=== PATIENT | male | born 1945 | race Caucasian/White ===

== ENCOUNTER 2018-05-06 09:56 | Day surgery (SDC) | payer MEDICARE ==
[~2018-05-06 09:56] MED LIST: Acetaminophen TAB* 325 MG PO PRN
[2018-05-06] MEDS ORDERED: Midazolam* 1 MG/ML 5 ML VIAL (5 MG) ONE (11:03)
[2018-05-06 12:19] VITALS: BP 160/94
--- NOTE | 2018-05-06 13:01 | OP ---
DATE OF OPERATION: 05/06/18 - [facility] DATE OF : 47 SURGEON: Guillermo Ward MD ANESTHESIA: Monitored anesthesia care. PRE-OP DIAGNOSIS: Cataract, left eye. POST-OP DIAGNOSIS: Cataract, left eye. OPERATIVE PROCEDURE: Extracapsular cataract extraction of the left eye with intraocular lens implant. IMPLANTS: SN60WF 18.0 diopter lens to the left eye. COMPLICATIONS: None. DESCRIPTION OF PROCEDURE: The patient was given phenylephrine 2.5% and cyclopentolate 1% eye drops to the operative eye in the preoperative area. The patient was taken to the operating room where a time-out was taken to identify the correct patient, site, and side of surgery. The patient's left eye was prepped and draped in the usual sterile fashion with 5% Betadine. A second time- out was taken to verify the correct patient, side, and site of surgery, as well as the correct lens implant. A lid speculum was placed to the left eye. A 1mm paracentesis blade was used to make a clear corneal incision. Preservative-free 1% lidocaine was injected into the anterior chamber. DisCoVisc was then injected into the anterior chamber. A 2.75 mm keratome blade was used to make a triplanar incision. A cystotome initiated a capsulorrhexis, which was completed with Utrata forceps in a continuous and curvilinear manner. Hydrodissection of the lens was performed with BSS on a cannula. The lens could be spun in a capsular bag. The phacoemulsification handpiece was used with a divide-and- conquer technique to remove the nucleus. The I/A handpiece then removed the residual cortical lens material. DisCoVisc was injected to inflate the capsular bag. The planned SN60WF 18.0 diopter lens was injected into the capsular bag. The residual DisCoVisc was removed from the eye with the I/A handpiece. The corneal incisions were hydrated and no leaks occurred at physiologic pressure around 20 mmHg per palpation. The lid speculum was removed and drapes were removed. Maxitrol ointment was placed to the surface of the operative eye. An adhesive patch and shield was then placed on the operative eye. The patient was taken to the postoperative area in stable condition. [id number]/[facility] #: [id number] [facility]
[2018-05-06] MEDS ORDERED: Tropicamide 1% OPTH.SOL* BTL ONE (13:12)
[2018-05-06] MEDS ORDERED: acetaZOLAMIDE TAB* 250 MG ONE (13:12)
[2018-05-06] MEDS ORDERED: Ketorolac 0.5% OPHTH (NF) 0.5 % 5 ML BTL ONE (13:12)
[2018-05-06] MEDS ORDERED: Tetracaine 0.5% OPTH.SOL 4 ML* 1 DROP BTL ONE (13:12)
[2018-05-06] MEDS ORDERED: Cyclopentolate 1% OPTH.SOL* 2 ML BTL ONE (13:12)
[2018-05-06] MEDS ORDERED: Lidocaine 1%* 5 ML VIAL ONE (13:12)
[2018-05-06] MEDS ORDERED: Neomycin/Polymy/Dex OPHTH.OIN* 3.5 GM ONE (13:12)
[2018-05-06] MEDS ORDERED: Povidone Iodine 5% OPTH* 30 ML BTL ONE (13:12)
== END 2018-05-06 12:25 | disposition home or self-care (01) ==
LOC: OREAST 09:56
PROVIDERS: ATTEND Student in an Organized Health Care Education/Training Program
DX: H25.12 Age-related nuclear cataract, left eye (principal); Z87.891 Personal history of nicotine dependence; I10 Essential (primary) hypertension; J44.9 Chronic obstructive pulmonary disease, unspecified; F41.9 Anxiety disorder, unspecified
CPT/HCPCS: A9270-GY; J2250; V2632

== ENCOUNTER 2018-05-13 08:50 | Day surgery (SDC) | payer MEDICARE ==
[2018-05-13] MEDS ORDERED: Midazolam* 1 MG/ML 5 ML VIAL (5 MG) ONE (10:33)
[2018-05-13] MEDS ORDERED: fentaNYL* 50 MCG/ML 2 ML VIAL (100 MCG VIAL) ONE (10:33)
[2018-05-13] MEDS ORDERED: Metoprolol Tartrate IV* 1 MG/ML 5 ML VIAL ONE (11:26)
[2018-05-13 12:03] VITALS: BP 147/95
[2018-05-13] MEDS ORDERED: Tetracaine 0.5% OPTH.SOL 4 ML* 1 DROP BTL ONE (15:20)
[2018-05-13] MEDS ORDERED: Phenylephrine 2.5% OPTH.SOL* 2 ML BTL ONE (15:20)
[2018-05-13] MEDS ORDERED: Ketorolac 0.5% OPHTH (NF) 0.5 % 5 ML BTL ONE (15:20)
[2018-05-13] MEDS ORDERED: Lidocaine 1%* 5 ML VIAL ONE (15:20)
[2018-05-13] MEDS ORDERED: Cyclopentolate 1% OPTH.SOL* 2 ML BTL ONE (15:20)
[2018-05-13] MEDS ORDERED: Tropicamide 1% OPTH.SOL* BTL ONE (15:20)
[2018-05-13] MEDS ORDERED: Neomycin/Polymy/Dex OPHTH.OIN* 3.5 GM ONE (15:20)
[2018-05-13] MEDS ORDERED: Povidone Iodine 5% OPTH* 30 ML BTL ONE (15:20)
[2018-05-13] MEDS ORDERED: acetaZOLAMIDE TAB* 250 MG ONE (15:20)
--- NOTE | 2018-05-14 09:34 | OP ---
DATE OF OPERATION: 05/13/18 - [facility] DATE OF : 47 SURGEON: Guillermo Ward MD ANESTHESIA: Monitored anesthesia care. PRE-OP DIAGNOSIS: Cataract lens fragment in the eye following cataract surgery , left eye. POST-OP DIAGNOSIS: Cataract lens fragment in the eye following cataract surgery , left eye. OPERATIVE PROCEDURE: Anterior chamber washout of the left eye. IMPLANTS: None. COMPLICATIONS: None. DESCRIPTION OF PROCEDURE: The patient was given phenylephrine 2.5% and cyclopentolate 1% eye drops to the operative eye in the preoperative area. The patient was taken to the operating room where a time-out was taken to identify the correct patient, site, and side of surgery. The patient's left eye was prepped and draped in the usual sterile fashion with 5% Betadine. A second time -out was taken to verify the correct patient, side, and site of surgery. A lid speculum was placed to the left eye. The anterior chamber was examined under the surgical microscope. The lens fragment could not be seen in the inferior angle under the surgical microscope; however, its presence was known due to the previous slit lamp exam. The 1-mm paracentesis was reaccessed using a cyclodialysis spatula. The anterior chamber was filled with Provisc. The superotemporal main incision was accessed with a cyclodialysis spatula. The inferior angle was then flushed with BSS and the lens fragment emerged and was visible. Provisc was used to displace lens fragment out through the main incision, which was done so without complication. The Provisc was then evacuated from the eye with the irrigation and aspiration tip. A thorough irrigation was performed with the I/A of the anterior chamber. The corneal incisions were hydrated and no leaks occurred at physiologic pressure around 20 mmHg per palpation. The lid speculum was removed and drapes removed. Maxitrol ointment was placed to the surface of the operative eye. An adhesive patch and shield was then placed in the operative eye. The patient was taken to the postoperative area in stable condition. [id number]/[facility] #: [id number] [facility]ITAL[facility]phan
== END 2018-05-13 11:54 | disposition home or self-care (01) ==
LOC: OREAST 08:50
PROVIDERS: ATTEND Student in an Organized Health Care Education/Training Program
DX: H59.022 Cataract (lens) fragments in eye following cataract surgery, left eye (principal); Z87.891 Personal history of nicotine dependence; K21.0 Gastro-esophageal reflux disease with esophagitis; I71.9 Aortic aneurysm of unspecified site, without rupture; F41.9 Anxiety disorder, unspecified
CPT/HCPCS: A9270-GY; J2250; J3010; J3490

== ENCOUNTER 2022-02-12 19:25 | Inpatient (IN) ==
[2022-02-12] MEDS ORDERED: Albuterol/Ipratropium NEB.SOL (2.5/0.5 MG) 3 ML NEB.SOLN INH ONE (20:10)
[2022-02-12] MEDS ORDERED: methylPREDNISolone SOD SUCC 125 mg 2 ML VIAL IV ONE (20:10)
[2022-02-12 20:43] LABS: PCO2 Arterial 27 mmHg (35-45)
[2022-02-12 20:47] LABS: PO2 Arterial 55 mmHg (80-100)
[2022-02-12 21:10] LABS: ABS Eosinophils 0.4 10^3/ul (0-0.6); ABS Lymphocytes 1.7 10^3/ul (1.0-4.8); ABS Monocytes 0.7 10^3/ul (0-0.8); ABS Neutrophils 6.7 10^3/ul (1.5-7.7); Eosinophil % 3.8 %; Hematocrit 37 % (42-52); Hemoglobin 12.6 g/dL (14.0-18.0); Lymphocyte % 18.1 %; Mean Corpuscular HGB Conc 34 g/dL (31-36); Mean Corpuscular Hemoglobin 30 pg (27-31); Mean Corpuscular Volume 87 fL (80-94); Mean Platelet Volume 7.9 fL (7.4-10.4); Nucleated Red Blood Cells % 0.2; Platelet Count 159 10^3/uL (150-450); Red Blood Count 4.21 10^6 /uL (4.18-5.48); Red Cell Distribution Width 14 % (10-15); White Blood Count 9.5 10^3/uL (3.5-10.8)
[2022-02-12] MEDS ORDERED: Furosemide 40 mg/4 ml IV VIAL IV SLOW PU ONE (21:31)
[2022-02-12 21:55] LABS: Albumin 4.1 g/dL (3.2-5.2); Albumin/Globulin Ratio 1.5 (1-3); Calcium 8.8 mg/dL (8.6-10.3); Globulin 2.7 g/dL (2-4); Potassium 4.1 mmol/L (3.5-5.0); Total Bilirubin 0.8 mg/dL (0.2-1.0); Total Protein 6.8 g/dL (6.4-8.9); eGFR CKD-EPI 78.5 (>60)
[2022-02-12] MEDS ORDERED: Iodixanol (CONTRAST) 320 MG/ML 100 ML SDV IV ONE (21:59)
[2022-02-12 23:24] LABS: High Sensitivity Troponin 1 Hr 16 pg/mL (<20)
[2022-02-12] MEDS ORDERED: cefTRIAXone 1 gm/50 mL D5W 1 GM/50 ML BAG IV ONE (23:32)
[2022-02-12] MEDS ORDERED: Azithromycin 500 mg/250 ml NS 500 MG/250 ML BAG IVPB ONE (23:35)
[2022-02-13 01:05] LABS: PCO2 Arterial 29 mmHg (35-45); PO2 Arterial 108 mmHg (80-100)
[2022-02-13] MEDS ORDERED: Albuterol/Ipratropium NEB.SOL (2.5/0.5 MG) 3 ML NEB.SOLN INH PRN (01:58)
[2022-02-13] MEDS: Enoxaparin 40 MG/0.4 ML SYR SUBCUT SCH (03:40)
[2022-02-13 04:35] LABS: ABS Lymphocytes 0.9 10^3/ul (1.0-4.8); ABS Monocytes 0.2 10^3/ul (0-0.8); ABS Neutrophils 6.6 10^3/ul (1.5-7.7); Eosinophil % 0.3 %; Hematocrit 34 % (42-52); Hemoglobin 11.8 g/dL (14.0-18.0); Lymphocyte % 11.8 %; Mean Corpuscular HGB Conc 34 g/dL (31-36); Mean Corpuscular Hemoglobin 30 pg (27-31); Mean Corpuscular Volume 86 fL (80-94); Mean Platelet Volume 8.1 fL (7.4-10.4); Nucleated Red Blood Cells % 0.1; Platelet Count 159 10^3/uL (150-450); Red Blood Count 4.02 10^6 /uL (4.18-5.48); Red Cell Distribution Width 14 % (10-15); White Blood Count 7.7 10^3/uL (3.5-10.8)
[2022-02-13 05:08] LABS: Calcium 8.5 mg/dL (8.6-10.3); Potassium 4.1 mmol/L (3.5-5.0); eGFR CKD-EPI 76.6 (>60)
[2022-02-13] MEDS ORDERED: Dextrose 50% Syringe 50 ml 25 GM/50 ML SYRINGE IV PUSH PRN (08:29)
[2022-02-13] MEDS: methylPREDNISolone SOD SUCC 40 mg/ml 1 ml VIAL IV SCH ×3 (09:13→23:57)
[2022-02-13] MEDS: SPIRIVA Respimat (tiotropium) 2.5 mcg/inh Inhaler INH SCH (10:24)
[2022-02-13] MEDS: Mometasone/Formoter 200/5 MDI INH SCH ×2 (10:25→20:21)
[2022-02-13] MEDS ORDERED: Albuterol 2.5mg/3 ml (0.083%) NEB.SOLN INH PRN (14:24)
[2022-02-13] MEDS ORDERED: cefTRIAXone 1 gm/50 mL D5W 1 GM/50 ML BAG IV SCH (21:00)
[2022-02-13] MEDS ORDERED: Azithromycin 500 mg/250 ml NS 500 MG/250 ML BAG IVPB SCH (22:00)
[2022-02-14] MEDS: SPIRIVA Respimat (tiotropium) 2.5 mcg/inh Inhaler INH SCH (08:28)
[2022-02-14] MEDS: Mometasone/Formoter 200/5 MDI INH SCH ×2 (08:28→21:30)
[2022-02-14] MEDS: Enoxaparin 40 MG/0.4 ML SYR SUBCUT SCH (08:34)
[2022-02-14] MEDS: methylPREDNISolone SOD SUCC 40 mg/ml 1 ml VIAL IV SCH ×2 (08:36→17:06)
[2022-02-14 10:03] LABS: ABS Lymphocytes 0.9 10^3/ul (1.0-4.8); ABS Monocytes 0.5 10^3/ul (0-0.8); Eosinophil % 0.1 %; Hematocrit 35 % (42-52); Hemoglobin 11.8 g/dL (14.0-18.0); Lymphocyte % 6.3 %; Mean Corpuscular HGB Conc 34 g/dL (31-36); Mean Corpuscular Hemoglobin 29 pg (27-31); Mean Corpuscular Volume 87 fL (80-94); Mean Platelet Volume 7.9 fL (7.4-10.4); Nucleated Red Blood Cells % 0.1; Platelet Count 225 10^3/uL (150-450); Red Blood Count 3.99 10^6 /uL (4.18-5.48); Red Cell Distribution Width 14 % (10-15); White Blood Count 14.4 10^3/uL (3.5-10.8)
[2022-02-14 10:41] LABS: Calcium 8.6 mg/dL (8.6-10.3); Magnesium 2.1 mg/dL (1.9-2.7); Potassium 4.3 mmol/L (3.5-5.0); eGFR CKD-EPI 74.9 (>60)
[2022-02-14] MEDS ORDERED: Albuterol/Ipratropium NEB.SOL (2.5/0.5 MG) 3 ML NEB.SOLN INH SCH ×2 (13:05→14:00)
[2022-02-14 13:59] LABS: PCO2 Arterial 31 mmHg (35-45)
[2022-02-14 14:02] LABS: PO2 Arterial 55 mmHg (80-100)
[2022-02-14] MEDS: Albuterol/Ipratropium NEB.SOL (2.5/0.5 MG) 3 ML NEB.SOLN INH SCH ×3 (14:03→23:24)
[2022-02-14] MEDS ORDERED: Furosemide 40 mg/4 ml IV VIAL IV ONE (17:08)
[2022-02-14] MEDS ORDERED: Furosemide 20 mg/2 ml IV VIAL ONE (17:17)
[2022-02-14] MEDS ORDERED: Piperacillin/Tazobac ADVAN 3.375 GM in NS 0.9% 100 ml BAG 100 ML IV ONE (17:26)
[2022-02-14] MEDS ORDERED: Vancomycin per Pharmacy 1 EA NOTE FOLLOW UP PRN (17:46)
[2022-02-14] MEDS ORDERED: Vancomycin 1,750 MG in NS 0.9% 500 ml BAG 500 ML IVPB ONE (18:00)
[2022-02-14] MEDS ORDERED: Linezolid 600 MG IVPREMIX(*) 600 MG/300 ML BAG IVPB SCH (18:00)
[2022-02-14] MEDS ORDERED: Zosyn per Pharmacy NOTE FOLLOW UP SCH (18:00)
[2022-02-14] MEDS: ZOSYN 3.375 GM Q8H per EXTENDED INFUSION IV SCH (22:40)
[2022-02-15] MEDS: methylPREDNISolone SOD SUCC 40 mg/ml 1 ml VIAL IV SCH ×3 (02:28→17:29)
[2022-02-15] MEDS: Albuterol/Ipratropium NEB.SOL (2.5/0.5 MG) 3 ML NEB.SOLN INH SCH ×6 (03:15→23:09)
[2022-02-15 06:06] LABS: ABS Lymphocytes 0.8 10^3/ul (1.0-4.8); ABS Monocytes 0.4 10^3/ul (0-0.8); Eosinophil % 0.1 %; Hematocrit 35 % (42-52); Hemoglobin 11.9 g/dL (14.0-18.0); Lymphocyte % 7.5 %; Mean Corpuscular HGB Conc 34 g/dL (31-36); Mean Corpuscular Hemoglobin 30 pg (27-31); Mean Corpuscular Volume 89 fL (80-94); Mean Platelet Volume 7.8 fL (7.4-10.4); Platelet Count 181 10^3/uL (150-450); Red Blood Count 3.93 10^6 /uL (4.18-5.48); Red Cell Distribution Width 14 % (10-15); White Blood Count 10.2 10^3/uL (3.5-10.8)
[2022-02-15] MEDS: Vancomycin 1,250 MG in NS 0.9% 250 ml 250 ML IVPB SCH ×2 (06:06→17:52)
[2022-02-15] MEDS: ZOSYN 3.375 GM Q8H per EXTENDED INFUSION IV SCH ×3 (06:06→21:34)
[2022-02-15 07:11] LABS: CO2 Carbon Dioxide 18 mmol/L (22-32); Calcium 8.6 mg/dL (8.6-10.3); Chloride 109 mmol/L (101-111); Magnesium 2.3 mg/dL (1.9-2.7); Sodium 139 mmol/L (135-145)
[2022-02-15 07:13] LABS: Anion Gap 12 mmol/L (2-11)
[2022-02-15 07:16] LABS: Blood Urea Nitrogen 44 mg/dL (6-24); Glucose 158 mg/dL (70-100); eGFR CKD-EPI 60.6 (>60)
[2022-02-15] MEDS: Mometasone/Formoter 200/5 MDI INH SCH ×2 (07:31→19:35)
[2022-02-15] MEDS ORDERED: Sulfur Hexaflouride MICROSPHR 25 MG VIAL ONE (08:03)
[2022-02-15 08:22] LABS: Potassium Redraw 4.3 mmol/L (3.5-5.0)
[2022-02-15] MEDS: Enoxaparin 40 MG/0.4 ML SYR SUBCUT SCH (08:43)
[2022-02-15 09:02] LABS: Phosphorus 4.7 mg/dL (2.5-5.0)
[2022-02-15] MEDS: Nystatin SUSPENSION 100,000 UNITS/ML UDC PO SCH ×3 (12:40→21:08)
[2022-02-16] MEDS: methylPREDNISolone SOD SUCC 40 mg/ml 1 ml VIAL IV SCH ×3 (00:50→18:08)
[2022-02-16] MEDS: Albuterol/Ipratropium NEB.SOL (2.5/0.5 MG) 3 ML NEB.SOLN INH SCH ×3 (03:16→11:03)
[2022-02-16 04:54] LABS: Hematocrit 34 % (42-52); Hemoglobin 11.6 g/dL (14.0-18.0); Mean Corpuscular HGB Conc 34 g/dL (31-36); Mean Corpuscular Hemoglobin 30 pg (27-31); Mean Corpuscular Volume 87 fL (80-94); Red Blood Count 3.89 10^6 /uL (4.18-5.48); Red Cell Distribution Width 14 % (10-15); White Blood Count 10.8 10^3/uL (3.5-10.8)
[2022-02-16 05:32] LABS: ABS Lymphocytes 0.8 10^3/ul (1.0-4.8); ABS Monocytes 0.6 10^3/ul (0-0.8); ABS Neutrophils 9.1 10^3/ul (1.5-7.7); Lymphocyte % 7.4 %; Mean Platelet Volume 7.7 fL (7.4-10.4); Nucleated Red Blood Cells % 0.1; Platelet Count 215 10^3/uL (150-450)
[2022-02-16 05:46] LABS: Calcium 8.8 mg/dL (8.6-10.3); Magnesium 2.3 mg/dL (1.9-2.7); Potassium 4.6 mmol/L (3.5-5.0); Vancomycin Trough 12.7 mcg/mL; eGFR CKD-EPI 73.2 (>60)
[2022-02-16] MEDS ORDERED: Vancomycin Trough Check NOTE FOLLOW UP ONE (06:00)
[2022-02-16] MEDS: Vancomycin 1,250 MG in NS 0.9% 250 ml 250 ML IVPB SCH ×2 (06:38→18:08)
[2022-02-16] MEDS: ZOSYN 3.375 GM Q8H per EXTENDED INFUSION IV SCH ×3 (06:38→20:33)
[2022-02-16] MEDS: Mometasone/Formoter 200/5 MDI INH SCH ×2 (07:56→20:39)
[2022-02-16] MEDS ORDERED: Furosemide 40 mg/4 ml IV VIAL IV SLOW PU ONE (08:18)
[2022-02-16] MEDS: Polyethylene Glycol 3350 17 GM PACKET PO SCH (09:50)
[2022-02-16] MEDS: Nystatin SUSPENSION 100,000 UNITS/ML UDC PO SCH ×4 (09:51→21:40)
[2022-02-16] MEDS: Senna TAB 8.6 mg TAB PO PRN (09:52)
[2022-02-16] MEDS: Enoxaparin 40 MG/0.4 ML SYR SUBCUT SCH (09:52)
[2022-02-16] MEDS ORDERED: Albuterol/Ipratropium NEB.SOL (2.5/0.5 MG) 3 ML NEB.SOLN INH PRN (11:03)
[2022-02-17] MEDS: methylPREDNISolone SOD SUCC 40 mg/ml 1 ml VIAL IV SCH ×4 (03:01→23:17)
[2022-02-17] MEDS ORDERED: hydrALAZINE 20 mg/ml 1 ML Vial IV IV SLOW PU ONE (04:00)
[2022-02-17] MEDS: Vancomycin 1,250 MG in NS 0.9% 250 ml 250 ML IVPB SCH (04:31)
[2022-02-17 05:27] LABS: ABS Lymphocytes 0.9 10^3/ul (1.0-4.8); ABS Monocytes 0.6 10^3/ul (0-0.8); ABS Neutrophils 7.3 10^3/ul (1.5-7.7); Hematocrit 34 % (42-52); Hemoglobin 11.7 g/dL (14.0-18.0); Lymphocyte % 10.1 %; Mean Corpuscular HGB Conc 35 g/dL (31-36); Mean Corpuscular Hemoglobin 30 pg (27-31); Mean Corpuscular Volume 87 fL (80-94); Mean Platelet Volume 7.6 fL (7.4-10.4); Platelet Count 208 10^3/uL (150-450); Red Blood Count 3.89 10^6 /uL (4.18-5.48); Red Cell Distribution Width 14 % (10-15); White Blood Count 8.8 10^3/uL (3.5-10.8)
[2022-02-17 06:01] LABS: Calcium 8.5 mg/dL (8.6-10.3); Magnesium 2.2 mg/dL (1.9-2.7); Potassium 4.3 mmol/L (3.5-5.0); eGFR CKD-EPI 78.5 (>60)
[2022-02-17] MEDS: ZOSYN 3.375 GM Q8H per EXTENDED INFUSION IV SCH ×3 (07:06→21:25)
[2022-02-17] MEDS: Mometasone/Formoter 200/5 MDI INH SCH ×2 (08:03→21:06)
[2022-02-17] MEDS: Nystatin SUSPENSION 100,000 UNITS/ML UDC PO SCH ×4 (08:37→20:24)
[2022-02-17] MEDS: Polyethylene Glycol 3350 17 GM PACKET PO SCH (08:38)
[2022-02-17] MEDS: Enoxaparin 40 MG/0.4 ML SYR SUBCUT SCH (08:40)
[2022-02-17] MEDS: Furosemide 40 mg/4 ml IV VIAL IV SCH ×2 (12:02→20:29)
[2022-02-17] MEDS ORDERED: Furosemide 40 mg/4 ml IV VIAL IV SCH (21:00)
[2022-02-18] MEDS ORDERED: Vancomycin Trough Check NOTE FOLLOW UP ONE (05:30)
[2022-02-18] MEDS: ZOSYN 3.375 GM Q8H per EXTENDED INFUSION IV SCH ×3 (06:11→23:10)
[2022-02-18] MEDS: Mometasone/Formoter 200/5 MDI INH SCH ×2 (07:01→19:23)
[2022-02-18 07:08] LABS: Hematocrit 38 % (42-52); Mean Corpuscular HGB Conc 34 g/dL (31-36); Mean Corpuscular Hemoglobin 30 pg (27-31); Mean Corpuscular Volume 89 fL (80-94); Mean Platelet Volume 7.9 fL (7.4-10.4); Platelet Count 252 10^3/uL (150-450); Red Blood Count 4.27 10^6 /uL (4.18-5.48); Red Cell Distribution Width 14 % (10-15); White Blood Count 8.3 10^3/uL (3.5-10.8)
[2022-02-18 07:37] LABS: Calcium 8.9 mg/dL (8.6-10.3); Magnesium 2.4 mg/dL (1.9-2.7); Potassium 4.3 mmol/L (3.5-5.0); eGFR CKD-EPI 73.2 (>60)
[2022-02-18] MEDS: methylPREDNISolone SOD SUCC 40 mg/ml 1 ml VIAL IV SCH ×2 (08:05→16:46)
[2022-02-18] MEDS: Nystatin SUSPENSION 100,000 UNITS/ML UDC PO SCH ×4 (08:05→20:24)
[2022-02-18] MEDS: Enoxaparin 40 MG/0.4 ML SYR SUBCUT SCH (08:05)
[2022-02-18] MEDS: Furosemide 40 mg/4 ml IV VIAL IV SCH (08:06)
[2022-02-18] MEDS: Polyethylene Glycol 3350 17 GM PACKET PO SCH (08:06)
[2022-02-18] MEDS ORDERED: Carbamide Peroxide 6.5% OTIC 15 ML BTL RIGHT EAR ONE (16:21)
[2022-02-18] MEDS ORDERED: Saline NASAL DROPS 0.65% BTL BOTH NARES PRN (16:22)
[2022-02-18] MEDS ORDERED: Saline NASAL SPRAY 0.65% BTL BOTH NARES PRN (17:00)
[2022-02-19] MEDS: ZOSYN 3.375 GM Q8H per EXTENDED INFUSION IV SCH ×2 (05:26→13:46)
[2022-02-19] MEDS: Mometasone/Formoter 200/5 MDI INH SCH ×2 (07:03→19:20)
[2022-02-19] MEDS: Polyethylene Glycol 3350 17 GM PACKET PO SCH (09:47)
[2022-02-19] MEDS: Nystatin SUSPENSION 100,000 UNITS/ML UDC PO SCH ×4 (09:51→22:41)
[2022-02-19] MEDS: Enoxaparin 40 MG/0.4 ML SYR SUBCUT SCH (09:52)
[2022-02-19] MEDS: Fluticasone NASAL SPRAY 50MCG 16 gm SPRAY BTL BOTH NARES SCH (10:24)
[2022-02-20] MEDS: Mometasone/Formoter 200/5 MDI INH SCH ×2 (07:42→19:37)
[2022-02-20] MEDS: SPIRIVA Respimat (tiotropium) 2.5 mcg/inh Inhaler INH SCH (07:43)
[2022-02-20] MEDS: Enoxaparin 40 MG/0.4 ML SYR SUBCUT SCH (09:21)
[2022-02-20] MEDS: Fluticasone NASAL SPRAY 50MCG 16 gm SPRAY BTL BOTH NARES SCH (09:24)
[2022-02-20] MEDS: Nystatin SUSPENSION 100,000 UNITS/ML UDC PO SCH ×4 (09:26→23:50)
[2022-02-20] MEDS: Polyethylene Glycol 3350 17 GM PACKET PO SCH (09:28)
[2022-02-20] MEDS ORDERED: Benzocaine (DENTAL) 10% TOP.GEL TOPICAL PRN (10:05)
[2022-02-21] MEDS: Mometasone/Formoter 200/5 MDI INH SCH ×2 (08:09→19:27)
[2022-02-21] MEDS: SPIRIVA Respimat (tiotropium) 2.5 mcg/inh Inhaler INH SCH (08:09)
[2022-02-21] MEDS: Nystatin SUSPENSION 100,000 UNITS/ML UDC PO SCH ×4 (10:11→21:19)
[2022-02-21] MEDS: Polyethylene Glycol 3350 17 GM PACKET PO SCH ×2 (10:11→10:13)
[2022-02-21] MEDS: Enoxaparin 40 MG/0.4 ML SYR SUBCUT SCH (10:12)
[2022-02-21] MEDS: Fluticasone NASAL SPRAY 50MCG 16 gm SPRAY BTL BOTH NARES SCH (10:12)
[2022-02-22 06:14] LABS: ABS Lymphocytes 0.7 10^3/ul (1.0-4.8); ABS Monocytes 0.4 10^3/ul (0-0.8); ABS Neutrophils 4.3 10^3/ul (1.5-7.7); Eosinophil % 0.5 %; Hematocrit 37 % (42-52); Hemoglobin 12.9 g/dL (14.0-18.0); Lymphocyte % 12.9 %; Mean Corpuscular HGB Conc 35 g/dL (31-36); Mean Corpuscular Hemoglobin 30 pg (27-31); Mean Corpuscular Volume 88 fL (80-94); Mean Platelet Volume 7.8 fL (7.4-10.4); Nucleated Red Blood Cells % 0.1; Platelet Count 217 10^3/uL (150-450); Red Blood Count 4.24 10^6 /uL (4.18-5.48); Red Cell Distribution Width 14 % (10-15); White Blood Count 5.4 10^3/uL (3.5-10.8)
[2022-02-22 06:48] LABS: Potassium 4.4 mmol/L (3.5-5.0)
[2022-02-22] MEDS: Mometasone/Formoter 200/5 MDI INH SCH ×2 (07:28→20:19)
[2022-02-22] MEDS: SPIRIVA Respimat (tiotropium) 2.5 mcg/inh Inhaler INH SCH (07:29)
[2022-02-22] MEDS: Nystatin SUSPENSION 100,000 UNITS/ML UDC PO SCH ×4 (08:13→20:16)
[2022-02-22] MEDS: Fluticasone NASAL SPRAY 50MCG 16 gm SPRAY BTL BOTH NARES SCH (08:14)
[2022-02-22] MEDS: Polyethylene Glycol 3350 17 GM PACKET PO SCH (08:15)
[2022-02-22] MEDS: Enoxaparin 40 MG/0.4 ML SYR SUBCUT SCH (08:27)
[2022-02-22] MEDS: Senna TAB 8.6 mg TAB PO PRN (20:15)
[2022-02-23] MEDS: SPIRIVA Respimat (tiotropium) 2.5 mcg/inh Inhaler INH SCH (08:00)
[2022-02-23] MEDS: Mometasone/Formoter 200/5 MDI INH SCH (08:00)
[2022-02-23] MEDS: Polyethylene Glycol 3350 17 GM PACKET PO SCH (09:48)
[2022-02-23] MEDS: Enoxaparin 40 MG/0.4 ML SYR SUBCUT SCH (09:48)
[2022-02-23] MEDS: Nystatin SUSPENSION 100,000 UNITS/ML UDC PO SCH (09:48)
[2022-02-23] MEDS: Fluticasone NASAL SPRAY 50MCG 16 gm SPRAY BTL BOTH NARES SCH (09:49)
[2022-02-23 11:06] VITALS: BP 125/83
== END 2022-02-23 14:10 | disposition home or self-care (01) | DRG 196 ==
LOC: ED 19:25 → EDHOLD 02-13 00:20 → SUATTDRO 02-13 00:20 → ICU 02-13 02:35 → MED 02-14 01:29 → ICU 02-14 16:01 → MED 02-18 01:48
PROVIDERS: ADMIT Internal Medicine; ATTEND Hospitalist

== ENCOUNTER 2022-03-30 13:38 | Inpatient (IN) ==
[2022-03-30] MEDS ORDERED: Albuterol 2.5mg/3 ml (0.083%) NEB.SOLN INH ONE (13:39)
[2022-03-30] MEDS ORDERED: Furosemide 100 mg/10 ml IV VIAL IV ONE (13:39)
[2022-03-30] MEDS ORDERED: Furosemide 40 mg/4 ml IV VIAL ONE (13:57)
[2022-03-30 14:05] LABS: ABS Lymphocytes 0.4 10^3/ul (1.0-4.8); ABS Monocytes 0.4 10^3/ul (0-0.8); ABS Neutrophils 7.2 10^3/ul (1.5-7.7); Hematocrit 38 % (42-52); Hemoglobin 12.7 g/dL (14.0-18.0); Lymphocyte % 4.6 %; Mean Corpuscular HGB Conc 34 g/dL (31-36); Mean Corpuscular Hemoglobin 30 pg (27-31); Mean Corpuscular Volume 90 fL (80-94); Mean Platelet Volume 7.8 fL (7.4-10.4); Nucleated Red Blood Cells % 0.1; Platelet Count 164 10^3/uL (150-450); Red Blood Count 4.18 10^6 /uL (4.18-5.48); Red Cell Distribution Width 17 % (10-15)
[2022-03-30 15:26] LABS: High Sensitivity Troponin 1 Hr 26 pg/mL (<20)
[2022-03-30 16:00] LABS: Albumin 3.6 g/dL (3.2-5.2); Albumin/Globulin Ratio 1.6 (1-3); Calcium 8.8 mg/dL (8.6-10.3); Creatinine, Serum 0.8 mg/dL (0.67-1.17); Globulin 2.3 g/dL (2-4); Potassium 4.4 mmol/L (3.5-5.0); Total Bilirubin 0.9 mg/dL (0.2-1.0); Total Protein 5.9 g/dL (6.4-8.9); eGFR CKD-EPI 91.7 (>60)
[2022-03-30] MEDS ORDERED: Azithromycin 500 mg/250 ml NS 500 MG/250 ML BAG IVPB ONE (18:30)
[2022-03-30] MEDS ORDERED: Lorazepam PYXIS KEY ONE ×2 (18:34→20:54)
[2022-03-30] MEDS ORDERED: LORazepam 2 mg VIAL 1 ml ONE (18:35)
[2022-03-30] MEDS ORDERED: LORazepam 2 mg VIAL 1 ml IV PUSH PRN ×4 (18:39→19:05)
[2022-03-30] MEDS ORDERED: Lorazepam PYXIS KEY PRN ×2 (18:39→18:43)
[2022-03-30] MEDS ORDERED: cefTRIAXone 1 gm/50 mL D5W 1 GM/50 ML BAG IV SCH (18:45)
[2022-03-30] MEDS ORDERED: LORazepam 2 mg VIAL 1 ml IV PUSH ONE (18:46)
[2022-03-30] MEDS ORDERED: methylPREDNISolone SOD SUCC 40 mg/ml 1 ml VIAL IV SCH (19:00)
[2022-03-30] MEDS: Albuterol/Ipratropium NEB.SOL (2.5/0.5 MG) 3 ML NEB.SOLN INH SCH ×2 (19:10→23:42)
[2022-03-30 19:36] LABS: Magnesium 2.7 mg/dL (1.9-2.7); Phosphorus 2.9 mg/dL (2.5-5.0)
[2022-03-30] MEDS ORDERED: Enoxaparin 40 MG/0.4 ML SYR SUBCUT SCH (20:00)
[2022-03-30] MEDS ORDERED: Haloperidol 5 mg/ml SDV IV/IM 5 MG/ML AMP IV SLOW PU ONE (21:09)
[2022-03-30] MEDS ORDERED: Haloperidol 5 mg/ml SDV IV/IM 5 MG/ML AMP ONE (21:10)
[2022-03-30] MEDS ORDERED: Morphine 4 MG/ML VIAL (1 ml) ONE (22:32)
[2022-03-30] MEDS: Morphine 2 MG/ML SYRINGE IV PRN (22:40)
[2022-03-30] MEDS ORDERED: Dexmedetomidine 1,000 MCG in NS 0.9% 250 ml 240 ML IV SCH (23:00)
[2022-03-30] MEDS ORDERED: Furosemide 40 mg/4 ml IV VIAL IV SLOW PU ONE (23:02)
[2022-03-30] MEDS ORDERED: Albuterol/Ipratropium NEB.SOL (2.5/0.5 MG) 3 ML NEB.SOLN INH ONE (23:03)
[2022-03-30] MEDS ORDERED: methylPREDNISolone SOD SUCC 40 mg/ml 1 ml VIAL IV ONE (23:14)
[2022-03-31] MEDS: Morphine 2 MG/ML SYRINGE IV PRN ×5 (00:47→15:18)
[2022-03-31] MEDS ORDERED: Haloperidol 5 mg/ml SDV IV/IM 5 MG/ML AMP IV SLOW PU PRN (01:06)
[2022-03-31 02:08] LABS: Calcium 8.5 mg/dL (8.6-10.3); Creatinine, Serum 1.26 mg/dL (0.67-1.17); Potassium 3.8 mmol/L (3.5-5.0); eGFR CKD-EPI 59.1 (>60)
[2022-03-31] MEDS: Albuterol/Ipratropium NEB.SOL (2.5/0.5 MG) 3 ML NEB.SOLN INH SCH ×4 (02:40→14:39)
[2022-03-31 02:51] LABS: ABS Lymphocytes 0.2 10^3/ul (1.0-4.8); ABS Monocytes 0.4 10^3/ul (0-0.8); ABS Neutrophils 6.1 10^3/ul (1.5-7.7); Hematocrit 36 % (42-52); Hemoglobin 12.1 g/dL (14.0-18.0); Lymphocyte % 3.1 %; Mean Corpuscular HGB Conc 33 g/dL (31-36); Mean Corpuscular Hemoglobin 31 pg (27-31); Mean Corpuscular Volume 92 fL (80-94); Mean Platelet Volume 8.1 fL (7.4-10.4); Platelet Count 153 10^3/uL (150-450); Red Blood Count 3.95 10^6 /uL (4.18-5.48); Red Cell Distribution Width 17 % (10-15); White Blood Count 6.6 10^3/uL (3.5-10.8)
[2022-03-31 03:06] LABS: PCO2 Arterial 36 mmHg (35-45)
[2022-03-31 03:08] LABS: PO2 Arterial 54 mmHg (80-100)
[2022-03-31] MEDS ORDERED: LORazepam 2 mg VIAL 1 ml IV PUSH PRN ×2 (03:31→14:17)
[2022-03-31] MEDS ORDERED: Lorazepam PYXIS KEY ONE ×2 (03:33→09:26)
[2022-03-31] MEDS ORDERED: LORazepam 2 mg VIAL 1 ml ONE ×2 (03:34→09:27)
[2022-03-31 04:49] LABS: ABS Lymphocytes 0.2 10^3/ul (1.0-4.8); ABS Monocytes 0.3 10^3/ul (0-0.8); Hematocrit 35 % (42-52); Hemoglobin 11.6 g/dL (14.0-18.0); Lymphocyte % 3.3 %; Mean Corpuscular HGB Conc 34 g/dL (31-36); Mean Corpuscular Hemoglobin 31 pg (27-31); Mean Corpuscular Volume 91 fL (80-94); Mean Platelet Volume 7.8 fL (7.4-10.4); Platelet Count 137 10^3/uL (150-450); Red Blood Count 3.78 10^6 /uL (4.18-5.48); Red Cell Distribution Width 17 % (10-15); White Blood Count 6.5 10^3/uL (3.5-10.8)
[2022-03-31 04:59] LABS: Urine Appearance Cloudy; Urine Bilirubin Negative (Negative); Urine Blood 1+ (Negative); Urine Color Yellow; Urine Glucose Negative (Negative); Urine Ketones Negative (Negative); Urine Nitrite Negative (Negative); Urine Protein Negative (Negative); Urine Specific Gravity 1.009 (1.002-1.030); Urine Urobilinogen Negative (Negative)
[2022-03-31 05:04] LABS: Calcium 8.4 mg/dL (8.6-10.3); Creatinine, Serum 1.54 mg/dL (0.67-1.17); Magnesium 1.9 mg/dL (1.9-2.7); Phosphorus 3.9 mg/dL (2.5-5.0); Potassium 3.9 mmol/L (3.5-5.0); eGFR CKD-EPI 46.5 (>60)
[2022-03-31 05:24] LABS: Urine Bacteria Absent (Absent); Urine Granular Casts Present (Absent); Urine Red Blood Cell 1+(3-5/hpf) (Absent); Urine Squamous Epithelial Cell Present (Absent); Urine White Blood Cell Trace(0-5/hpf) (Absent)
[2022-03-31] MEDS: methylPREDNISolone SOD SUCC 40 mg/ml 1 ml VIAL IV SCH ×2 (05:53→15:20)
[2022-03-31] MEDS ORDERED: DOXYcycline 100 MG in NS 0.9% 250 ml 250 ML IVPB SCH (09:00)
[2022-03-31] MEDS ORDERED: Furosemide 40 mg/4 ml IV VIAL ONE (09:28)
[2022-03-31] MEDS ORDERED: Lorazepam PYXIS KEY PRN ×3 (09:33→14:17)
[2022-03-31] MEDS ORDERED: Furosemide 40 mg/4 ml IV VIAL IV ONE (09:34)
[2022-03-31] MEDS ORDERED: LORazepam 2 mg VIAL 1 ml IV PUSH ONE ×3 (09:34→17:57)
[2022-03-31] MEDS ORDERED: Metoprolol Tartrate 5 mg VIAL 5 ml VIAL (1 mg/ml) IV SCH (11:00)
[2022-03-31] MEDS ORDERED: Pantoprazole VIAL 40 MG VIAL IV SCH (11:00)
[2022-03-31] MEDS ORDERED: Albuterol/Ipratropium NEB.SOL (2.5/0.5 MG) 3 ML NEB.SOLN INH ONE (14:22)
[2022-03-31 14:28] LABS: Hepatitis C Antibody Negative (Negative)
[2022-03-31] MEDS ORDERED: Dextrose 50% Syringe 50 ml 25 GM/50 ML SYRINGE IV PUSH PRN (14:34)
[2022-03-31] MEDS ORDERED: methylPREDNISolone SOD SUCC 125 mg 2 ML VIAL IV ONE (14:51)
[2022-03-31 14:53] LABS: PCO2 Arterial 37 mmHg (35-45)
[2022-03-31 15:01] LABS: PO2 Arterial 52 mmHg (80-100)
[2022-03-31 17:33] VITALS: BP 99/68
[2022-03-31] MEDS ORDERED: Ondansetron 4 mg VIAL 2 MG/ML 2 ml VIAL IV PRN (17:50)
[2022-03-31] MEDS ORDERED: Atropine 1% (ORAL/SL) 15 ML BTL SL PRN (17:50)
[2022-03-31] MEDS ORDERED: Morphine 10 MG/ML VIAL (1 ml) IV ONE (18:00)
[2022-03-31] MEDS ORDERED: Morphine 10 MG/ML VIAL (1 ml) ONE (18:01)
== END 2022-03-31 18:34 | disposition expired | DRG 189 ==
LOC: ED 13:38 → EDHOLD 15:28 → ICU 16:26
PROVIDERS: ADMIT Surgery Surgical Critical Care; ATTEND Surgery Surgical Critical Care